=== PATIENT | male | born 2000 | race African-American/Black ===

== ENCOUNTER 2024-09-22 22:15 | Observation (INO) | payer OTHER, SELFPAY ==
[2024-09-22 16:53] VITALS: BP 106/63
[2024-09-22 17:00] VITALS: BP 115/70
--- NOTE | 2024-09-22 17:04 | ED.GENMED ---
History of Present Illness
General
Chief Complaint: Abnormal Lab Value
Source: patient
Exam Limitations: none
Time Seen by Provider: 09/22/24 16:55
History of Present Illness
History of Present Illness:
See MDM
Past History
Past History
ED Past Medical History: Other (Sickle cell)
ED Past Surgical History: Cholecystectomy
Social History
Tobacco: Non-smoker
Alcohol: None
Phy Exam
Physical Exam
Physical Exam:
See MDM
Course
Orders/Labs/Results
Orders:
Orders
09/22/24 17:00
CMP [Comprehensive Metabolic Panel] Urgent
Complete Blood Count/With Diff Urgent
Reticulocyte Count Urgent
Comment: ADD ON
09/22/24 17:02
Add On- LAB Urgent
Tests Added?: reticulocyte count
0.9% Sodium Chloride 1000 ml [Nss] 1,000 ml IV BOLUS
HYDROmorphone [Dilaudid] 1 mg IV NOW STA
09/22/24 17:03
CT Abd/pelvis W Iv Cont Urgent
Comment: sickle cell
Reason For Exam: left upper abd pain
CR Chest - 2 Views Urgent
Comment: sickle cell
Reason For Exam: chest pain
09/22/24 19:15
Morphine Sulfate 4 mg IV NOW STA
09/22/24 20:14
NT-proBNP Urgent
Troponin I Urgent
Abnormal Lab Results
09/22/24
17:00
WBC 12.5 H 10^3/uL
(4.8-10.8)
RBC 2.87 L 10^6/uL
(4.70-6.10)
Hgb 8.9 L g/dL
(13.0-18.0)
Hct 24.1 L %
(39.0-52.0)
RDW 20.7 H %
(11.5-14.5)
Plt Count 430 H 10^3/uL
(130-400)
MPV 10.9 H fL
(7.4-10.4)
Absolute Neuts (auto) 9.7 H 10^3/uL
(1.4-6.5)
Absolute Monos (auto) 1.2 H 10^3/uL
(0.1-0.6)
Neutrophils % 77.8 H %
(42.2-75.2)
Lymphocytes % 11.7 L %
(20.5-51.1)
Monocytes % 9.9 H %
(1.7-9.3)
Retic Count 7.8 H %
(0.4-2.8)
BUN 6 L mg/dl
(9-20)
Glucose 105 H mg/dl
(70-99)
Total Bilirubin 8.2 H mg/dl
(0.2-1.3)
Total Protein 8.5 H g/dl
(6.3-8.2)
Albumin 5.2 H g/dl
(3.5-5.0)
09/22/24 17:00
09/22/24 17:00
Vital Signs
Initial and Last Documented VS:
Initial Vital Signs
Temp Pulse Resp BP Pulse Ox
98.1 F 61 15 106/63 100
09/22/24 16:53 09/22/24 16:53 09/22/24 16:53 09/22/24 16:53 09/22/24 16:53
Last Documented Vital Signs
Temp Pulse Resp BP Pulse Ox
98.1 F 61 15 124/77 98
09/22/24 16:53 09/22/24 16:53 09/22/24 16:53 09/22/24 20:15 09/22/24 21:21
MDM/Problems Addressed
Differential Diagnosis Includes:
Note:
CHIEF COMPLAINT(S)
Sickle cell crisis with pain.
HISTORY OF PRESENT ILLNESS
The patient is a 35-year-old male with a history of sickle cell disease presenting with a sickle cell crisis characterized by pain that began yesterday. The patient presents from [facility]. The patient described the pain as
located on the left side and indicated no previous admissions for overnight stays due to such crises. No chest pain was mentioned during this episode. The patient confirmed adherence to hydroxyurea for managing sickle cell disease. Upon examination,
tenderness was reported upon palpation of the abdomen, specifically on the left side. The patient did not report any associated cough or wheezing.
ADDITIONAL HISTORY OBTAINED FROM SOURCES OTHER THAN THE PATIENT
The patients mother was present and confirmed the absence of known allergies.
MEDICATIONS
The patient is currently taking hydroxyurea for sickle cell management.
PHYSICAL EXAM
General: Alert, no acute distress.
Skin: Warm, dry.
Head: Normocephalic, atraumatic
Neck: Appears supple, trachea midline.
Eyes, Ears, Nose, Mouth, and Throat: Oral mucosa moist.
Cardiovascular: No signs of cyanosis
Respiratory: Respirations are non-labored.. Lungs clear
Abdomen: Non-distended. Mild left upper quadrant tenderness without rebound
Musculoskeletal: No deformities
Neurological: No focal neurological deficit observed.
Psychiatric: Cooperative, appropriate mood and affect.
PLAN
1. Administer intravenous fluids.
2. Administer pain management with dilaudid.
3. Order a chest X-ray to evaluate for acute chest syndrome.
4. Perform a CT scan of the abdomen to assess for other potential causes of abdominal pain.
DIFFERENTIAL DIAGNOSIS
The Differential Diagnosis includes, in no particular order and is not limited to:
1. Acute chest syndrome
2. Sickle cell crisis
3. Splenic sequestration
4. Gallstones or cholecystitis
5. Pancreatitis
6. Acute appendicitis
7. Kidney stones
8. Hepatic crisis
9. Rib infarction
10. Constipation
CARE-UPDATE
09/22/24 - 19:15
The patient continues to experience left upper quadrant pain despite appearing more comfortable. The chest x-ray shows enlarged cardiac silhouette and concern for increased vascular congestion. The patient reported dizziness following administration
of dilaudid, so will give dose of morphine
Disposition:
SUMMARY OF ENCOUNTER
The patient, a 35-year-old male with known sickle cell disease, presented to the emergency department with a sickle cell crisis characterized by pain predominantly on the left side, beginning the previous day. Despite hydroxyurea adherence, the pain
persisted. Examination revealed left abdominal tenderness. Intravenous fluids were administered, and pain management was initiated with hydromorphone. A chest X-ray was ordered to evaluate for acute chest syndrome, revealing an enlarged cardiac
silhouette and increased vascular congestion.
DISPOSITION
Admit
ASSESSMENT
Given the patients history and current symptoms, the assessment includes possible acute chest syndrome related to sickle cell crisis, along with cardiomegaly indicated by radiological findings.
EMERGENCY TREATMENTS ADMINISTERED
Hydromorphone (generic for Dilaudid) for pain management, and intravenous fluids were administered.
MANAGEMENT OF THE PATIENTS CARE WAS DISCUSSED WITH
Discussion with hospitalists regarding the patients management and admission for further evaluation and treatment.
PLAN
The plan includes admission for further management of the sickle cell crisis and evaluation of potential acute chest syndrome in collaboration with the hospitalist team.
INDEPENDENT REVIEW OF LABS AND INTERPRETATION OF TESTS
- My independent interpretation of the chest x-ray shows an enlarged cardiac silhouette and increased vascular congestion.
MEDICAL DECISION MAKING
- Number and Complexity of Problems Addressed: Chronic conditions affecting care [sickle cell disease]. Differential Diagnosis includes: acute chest syndrome, splenic sequestration, gallstones or cholecystitis, pancreatitis, acute appendicitis,
kidney stones, hepatic crisis, rib infarction, and constipation.
- Data:
Category 1
- My independent interpretation of chest x-ray shows an enlarged cardiac silhouette and vascular congestion.
Category 2
- Input from independent historian: The patient�s mother confirmed the absence of allergies.
- Risk:
Consideration of intravenous pain management and admission due to the complexity of sickle cell crisis and chest x-ray findings suggestive of cardiomegaly and increased vascular congestion.
DIAGNOSIS
- Sickle cell crisis (ICD-10: D57.00)
- Acute chest syndrome suspected (ICD-10: D57.01)
*Pulse Oximetry
SaO2: 100
Oxygen Mode of Delivery: Room air
Patient hypoxic: no
*Critical Care Note
Total Time (30-74mins, 75-104mins- exclusive of procedures): Not Applicable
ED Attending Note
-
Portions of this chart may have been created with voice recognition software.� Occasional wrong word or��sound alike� substitutions may have occurred due to the inherent limitations of voice recognition software.
Discharge Plan
Departure
Patient Disposition: Admit
Date of Disposition: 09/22/24
Time of Disposition: 21:24
Admit to: Med/Surg
Presentation/result/management discussed w/ accepting MD/DO: Hospitalist
Discharge Problem:
Sickle cell crisis
Referrals:
[facility] [Family Provider, General]
Interventions
Interventions:
*General Assessment Last Done: 09/22/24 17:12
*Neglect/Abuse Screening Last Done: 09/22/24 17:12
*ED- Fall Risk Assessment Last Done: 09/22/24 17:12
*ED COVID-19 Vaccine History Last Done: 09/22/24 17:12
Discharge Date and Time
Print Language: ANGUILLAN
[2024-09-22] MEDS: NSS 1000 IV (17:08)
[2024-09-22] MEDS: DILAUDID 1 MG IV (17:09)
[2024-09-22 17:16] VITALS: BMI 21.1
[2024-09-22 17:27] LABS: ALT (SGPT) 16 U/L (0-50); AST (SGOT) 37 U/L (17-59); Albumin 5.2 g/dl (3.5-5.0); Alkaline Phosphatase 68 U/L (38-126); Blood Urea Nitrogen 6 mg/dl (9-20); Calcium 9.9 mg/dl (8.4-10.2); Carbon Dioxide 25 mmol/L (22-30); Chloride 106 mmol/L (98-107); Estimated Creatinine Clearance > 125 ml/min; Glucose 105 mg/dl (70-99); Hematocrit 24.1 % (39.0-52.0); Hemoglobin 8.9 g/dL (13.0-18.0); Mean Corp Hgb Conc. 36.9 g/dL (33.0-37.0); Mean Corpuscular Volume 84.0 fL (80.0-94.0); Platelet Count 430 10^3/uL (130-400); Potassium 4.2 mmol/L (3.5-5.1); Red Cell Dist. Width 20.7 % (11.5-14.5); Sodium 140 mmol/L (135-145); Total Protein 8.5 g/dl (6.3-8.2); eGFR > 60.00
[2024-09-22 17:59] LABS: Nucleated Red Blood Cells % 0.2 % (-)
[2024-09-22 18:01] LABS: Reticulocyte Count 7.8 % (0.4-2.8)
[2024-09-22 18:04] VITALS: BP 110/61
[2024-09-22 19:00] VITALS: BP 115/62
[2024-09-22] MEDS: MORPHINE SULFATE 4 MG IV (19:21)
[2024-09-22 20:15] VITALS: BP 124/77
[2024-09-22 20:26] LABS: Normal RBC Morphology No
[2024-09-22 20:28] LABS: Anisocytosis 1+; Hypochromasia 2+; Macrocytosis 1+
[2024-09-22 20:29] LABS: Ovalocytes 1+; Sickled Red Blood Cells 3+; Target Cells 1+
[2024-09-22 20:47] LABS: Troponin I 0.020 ng/ml
[2024-09-22 21:23] VITALS: BP 113/79
--- NOTE | 2024-09-22 21:35 | HPS.HSE ---
Family Physician
-
Family Physician: [facility]
Chief Complaint
-
Pain crisis
History of Present Illness
This is a 24-year-old with past medical history significant for sickle cell anemia, history of her chest pain crisis with last episode being June of this year complicated by pneumonia and status post cholecystectomy who presents to the emergency
department with 1 day history of chest and abdominal pain.
Patient reported that symptoms started yesterday when he initially noticed yellow discoloration of his eyes. Then he started having chest and abdominal pain. At that time he did check himself into the correctional facility to avoid being if EGD.
He denies any IV drug use. He denies having any fevers or chills. He denies nausea or vomiting. He denies feeling short of breath at the moment. His hemoglobin is usually around 9. Patient states that he takes and corroborated with mother folic
acid Percocet Tylenol 3 and has been prescribed hydroxyurea but he does not take this due to side effects.
In the emergency department the patient was afebrile, oxygen saturation was 99% on room air. Blood pressure was 115/60 with a pulse of 61. Chest x-ray shows slightly enlarged cardiac silhouette but no acute infiltrates noted.
He has a white count of 12.5, hemoglobin was 8.9 with a platelet count of 430. Reticulocyte count was 7.8. Total bilirubin was 8.2. Electrolytes BUN/creatinine were normal. CT of the abdomen and pelvis shows atrophic partially calcified spleen
thought secondary to splenic infarct from sickle cell disease.
Medical History
Past Medical History
Past Medical History: Reports Other (Sickle cell disease)
Past Surgical History: Reports Cholecystectomy
Social History
Tobacco: Non-smoker
Alcohol: None
Drug: None
Personal: Single
Living: Jail
Family History
Family History: Not pertinent
Allergies / Home Medications
Allergies reflects when Allergies were last updated in [employer].
Home Medications with original date entered in [employer]
Allergy/Medication List:
Allergies
Allergy/AdvReac Type Severity Reaction Status Date / Time
No Known Allergies Allergy Verified 09/22/24 17:00
Folic acid 1 mg tablets, 1 mg p.o. daily
Review of Systems
-
History Source: Patient
Constitutional: Reports No Symptoms
EENT: Reports No Symptoms
Respiratory: Reports No Symptoms
Cardiac: Reports Chest Pain
Abdomen/GI: Reports Abdominal Pain
: Reports No Symptoms
Musculoskeletal: Reports No Symptoms
Skin: Reports No Symptoms
Neurological: Reports No Symptoms
Endocrine: Reports No Symptoms
Hematologic/Lymphatic: Reports No Symptoms
Psych: Reports No Symptoms
Physical Exam
Vital Signs
Vital Signs
Temp Pulse Resp BP Pulse Ox
98.1 F 61 15 124/77 98
09/22/24 16:53 09/22/24 16:53 09/22/24 16:53 09/22/24 20:15 09/22/24 21:21
Physical Exam
General: Well Developed, Comfortable, Conversant and Pain
HEENT: NormoCephalic, Moist mucous membranes, Atraumatic and PERRLA; No Oxygen
Respiratory: Clear and Non Labored Respirations; No Wheezes, Rales, Rhonchi or Crackles
Cardiac: S1/S2 and Regular Rhythm
Breast: Deferred by me
GI: Soft, Non Tender, Non Distended and Normal Bowel Sounds
Rectal: Deferred by Provider
Genito-urinary: Deferred by me
Musculoskeletal: No Clubbing, No Cyanosis and No Edema
Skin: Warm
Neuro: AO x 3 and Nonfocal/grossly intact
Hematologic/Lymphatic: No Lymphadenopathy
Psych: Calm
Laboratory Results
-
09/22/24 17:00
09/22/24 17:00
Laboratory Results
Total Bilirubin 8.2 mg/dl (0.2-1.3) H 09/22/24 17:00
AST 37 U/L (17-59) 09/22/24 17:00
ALT 16 U/L (0-50) 09/22/24 17:00
Alkaline Phosphatase 68 U/L (38-126) 09/22/24 17:00
Troponin I 0.020 ng/ml 09/22/24 20:14
Data Reviewed
-
Diagnostic Radiology: Image Personally Visualized and interpreted and Report Reviewed by me
CT Scan: Report Reviewed by me
Lab Data: Labs Reviewed by me
Old Records: Reviewed
Impression/Plan
-
IMPRESSION:
24-year-old with history of sickle cell disease recurrent episode of sickle cell crisis who presents to the emergency department with chest pain abdominal pain, icteric sclera, elevated T bilirubin consistent with acute pain syndrome. His chest
x-ray is clear. He is not hypoxic. Lungs are clear to auscultation. Do not believe that this is an acute chest syndrome. Troponin is negative. BNP is normal. He is hemoglobin is 8.9, parents report that his baseline hemoglobin is around
9.5-10. Reticulocyte count is 7.8. T bilirubin 8
PLAN:
Sickle cell pain crisis -moderate severity without acute chest syndrome or pneumonia
- admit to med/surg observation
- IV fluids continued at 125 ml/hr ns
- pain control with RTC tylenol and prn oxycodone and dilaudid
- antiemetics
- trend H/H and bilis for now
- monitor oxygenation continously
- hematology consultation
- patient not taking prescribed hydroxyurea due to side effect of nausea
DVT PPX - lovenox sq
Code status - Full code
[2024-09-23] MEDS: TYLENOL 650 MG PO ×4 (00:53→20:01)
[2024-09-23] MEDS: NSS 1000 IV ×2 (00:55→08:38)
[2024-09-23 01:09] VITALS: BP 113/64
[2024-09-23] MEDS: TYLENOL PO ×2 (04:07→13:04)
[2024-09-23 06:17] VITALS: BP 109/59
[2024-09-23 06:24] LABS: Hematocrit 21.5 % (39.0-52.0); Hemoglobin 7.7 g/dL (13.0-18.0); Mean Corp Hgb Conc. 35.8 g/dL (33.0-37.0); Mean Corpuscular Volume 84.0 fL (80.0-94.0); Platelet Count 349 10^3/uL (130-400); Red Cell Dist. Width 20.7 % (11.5-14.5)
[2024-09-23 06:32] LABS: Blood Urea Nitrogen 6 mg/dl (9-20); Calcium 9.1 mg/dl (8.4-10.2); Carbon Dioxide 25 mmol/L (22-30); Chloride 109 mmol/L (98-107); Estimated Creatinine Clearance > 125 ml/min; Glucose 96 mg/dl (70-99); Potassium 4.5 mmol/L (3.5-5.1); Sodium 139 mmol/L (135-145); eGFR > 60.00
[2024-09-23] MEDS: FOLVITE 1 MG PO (08:13)
[2024-09-23] MEDS: DILAUDID 0.5 MG IV (08:20)
[2024-09-23 08:25] VITALS: BP 126/72
--- NOTE | 2024-09-23 10:22 | CON.ONC ---
Consultation
-
Date Consultation Requested: 09/23/24
Date Consultation Performed: 09/23/24
Requesting Provider: Hoa Posada
Performing Provider: Dr. Angelica Gudino
Reason for Consultation: Sickle cell pain crisis
Impression
Impression
24-year-old male with past medical history of sickle cell disease presenting with sickle cell crisis without acute chest syndrome or pneumonia as he is satting well on room air, and no signs of infection on chest x-ray. His pain is currently not
well controlled and will need increase in pain meds to break the crisis.
Plan
Plan
Sickle cell crisis
--Pain currently not well-controlled. Increase Dilaudid 0.5 every 4 to every 2. Continue p.o. Oxy 10 mg every 4 as needed
--Cont scheduled tylenol
--PRN zofran for nausea
--Chest x-ray revealed some signs of congestion. DC IV fluids
-- Continue folic acid
-- Encourage inspirometry use
-- Check iron panel
-- Monitor H&H and vitals
Leukocytosis
-- 12.5 on admission now 10.5
-- Likely reactive
-- Check UA
-- no signs of pneumonia on chest x-ray, no signs of infection on abdominal CT afebrile
Full code
DVT Lovenox
Spoke to mom over the phone and gave her an update that her son is doing well however he does need continued pain medications. She provided additional information regarding his hospitalization in June at [facility] and home medication list as
mentioned in HPI.
Patient History
History of Present Illness
24-year-old male with past medical history of sickle cell anemia presents to the hospital with chest and abdominal pain. His last sickle cell episode was in June 2024 complicated with pneumonia at [facility]. He has been experiencing his chest and
abdominal pain for the past day. He initially noticed some yellow discoloration in his eyes. When he started to have abdominal and chest pain this when he decided to check him into a correctional facility (unclear why). The correctional facility
later brought him to the hospital. He endorses some nausea, blurry vision and upper extremity pain especially around wrists and fingers. He denies any fevers, chills or vomiting. He denies any shortness of breath or burning with urination. He
states his hemoglobin is usually around 9 and he takes folic acid.
Per discussion with his mom, patient also takes Percocet 10/325 every 4-6 hours however patient states he does not take it that regularly. He has tried hydroxyurea in the past however does not take it due to side effects that include itchiness,
nausea and vomiting. She is electronic transaction implementer is Dr. Annette Castrejon. He has no known history of splenic infarct and he is not aware if he has had immunizations for Meningococcal, pneumonia, haemophilus influenza.
In the ED, he was afebrile, satting well on room air, vital signs stable. WBC 12.5, hg 8.9, platelet count 430, reticulocyte count 7.8, total bilirubin 8.2. CT revealed atrophic partially calcified spleen thought to be secondary to infarct from
sickle cell disease.
Past-Medical/Surgical History
Past medical history: Sickle cell disease
Past surgical history: Cholecystectomy 2023
Patient Medication
�Medication �Instructions �Recorded �Confirmed �Last Taken �Type
No Meds [No Current Medications] 09/23/24 09/23/24 Unknown History
Active Medications
Generic Name Dose Route Start Last Admin
Trade Name Freq PRN Reason Stop Dose Admin
Acetaminophen 650 mg 09/23/24 00:21 09/23/24 08:12
Acetaminophen 325 Mg Tablet PO 10/21/24 00:20 650 mg
Q4HWA SOFIA Administration
Albuterol/Ipratropium 3 ml 09/23/24 00:21
Ipratropium 0.5/Albuterol 3 Mg (3 Ml Ampul) INH
R Q4HPRN PRN
shortness of breath
Protocol
Bisacodyl 10 mg 09/23/24 00:21
Bisacodyl 10 Mg Rectal Suppository RECTAL 10/21/24 00:20
[id number] PRN
constipation
Enoxaparin Sodium 40 mg 09/23/24 18:00
Enoxaparin Sodium 40 Mg/0.4 Ml Syringe SC 10/21/24 17:59
QPM SOFIA
Folic Acid 1 mg 09/23/24 08:00 09/23/24 08:13
Folic Acid 1 Mg Tablet PO 10/21/24 07:59 1 mg
DAILY SOFIA Administration
Hydromorphone HCl 0.5 mg 09/23/24 00:21 09/23/24 08:20
Hydromorphone 0.5 Mg/0.5 Ml Syringe IV 10/07/24 00:20 0.5 mg
Q4HPRN PRN Administration
severe pain
Sodium Chloride 1,000 mls @ 125 mls/hr 09/23/24 00:21 09/23/24 08:38
Nss IV 1,000 mls
.Q8H SOFIA Administration
Ondansetron HCl 4 mg 09/23/24 00:21
Ondansetron 4 Mg/2 Ml Vial IV 10/21/24 00:20
Q6HPRN PRN
nausea and vomiting
Oxycodone HCl 10 mg 09/23/24 00:21
Oxycodone 5 Mg Regular Release Tablet PO 10/07/24 00:20
Q4HPRN PRN
moderate pain
Polyethylene Glycol 17 grams 09/23/24 00:21
Polyethylene Glycol Powder 17 Grams Packet PO 10/21/24 00:20
DAILYPRN PRN
constipation
Senna/Docusate Sodium 1 tablet 09/23/24 00:21
Docusate W/Senna (Niurka-Colace) Tablet PO 10/21/24 00:20
BIDPRN PRN
constipation
Sodium Chloride 0 flush 09/23/24 01:00
Sodium Chloride 0.9% (Flush) Syringe IV 10/21/24 00:59
PER PROTOCOL SOFIA
Review of Systems
-
History Source: Patient
Constitutional: Reports No Appetite
EENT: Reports Blurry Vision
Respiratory: Reports No Symptoms
Cardiac: Reports Chest Pain
GI: Reports Abdominal Pain and Nausea
: Reports No Symptoms
Skin: Reports No Symptoms
Neuro: Reports No Symptoms
Physical Exam
-
General: Well Developed
Cardiology: Normal Sinus Rhythm, S1 and S2
Pulmonary: Clear
GI: Soft, Normal Bowel Sounds and Other (Tenderness with palpation left upper quadrant)
Musculoskeletal: No Cyanosis and No Edema
Skin: Warm and Dry
Psych: Calm
Labs
Lab Results
WBC 10.5 10^3/uL (4.8-10.8) 09/23/24 06:09
RBC 2.56 10^6/uL (4.70-6.10) L 09/23/24 06:09
Hgb 7.7 g/dL (13.0-18.0) L 09/23/24 06:09
Hct 21.5 % (39.0-52.0) L 09/23/24 06:09
MCV 84.0 fL (80.0-94.0) 09/23/24 06:09
MCH 30.1 pg (27.0-31.0) 09/23/24 06:09
MCHC 35.8 g/dL (33.0-37.0) 09/23/24 06:09
RDW 20.7 % (11.5-14.5) H 09/23/24 06:09
Plt Count 349 10^3/uL (130-400) 09/23/24 06:09
MPV 10.4 fL (7.4-10.4) 09/23/24 06:09
Abs Immat Gran (auto) 0.0 10^3/uL (0-0.05) 09/22/24 17:00
Absolute Neuts (auto) 9.7 10^3/uL (1.4-6.5) H 09/22/24 17:00
Absolute Lymphs (auto) 1.5 10^3/uL (1.2-3.4) 09/22/24 17:00
Absolute Monos (auto) 1.2 10^3/uL (0.1-0.6) H 09/22/24 17:00
Absolute Eos (auto) 0.0 10^3/uL (0-0.7) 09/22/24 17:00
Absolute Basos (auto) 0.0 10^3/uL (0-0.2) 09/22/24 17:00
Immature Gran % 0.2 % (0-0.5) 09/22/24 17:00
Neutrophils % 77.8 % (42.2-75.2) H 09/22/24 17:00
Lymphocytes % 11.7 % (20.5-51.1) L 09/22/24 17:00
Monocytes % 9.9 % (1.7-9.3) H 09/22/24 17:00
Eosinophils % 0.2 % (0-6) 09/22/24 17:00
Basophils % 0.2 % (0-2) 09/22/24 17:00
Creatinine 0.6 mg/dL (0.7-1.3) L 09/23/24 06:09
Vital Signs
Vital Signs
Temp Pulse Resp BP Pulse Ox
98.2 F 62 18 126/72 98
09/23/24 08:25 09/23/24 08:25 09/23/24 08:25 09/23/24 08:25 09/23/24 08:25
--- NOTE | 2024-09-23 11:57 | W.PN.HOSP.TC ---
Today's Communication/Plan
-
Maintenance IV fluids and supportive O2
Trend hemolytic markers
As needed analgesics
Oncology consult for maintenance therapy considerations
Assessment / Plan
Assessment / Plan
#Sickle cell pain crisis
#Sickle cell anemia
-Recurrence likely related to intolerance to hydroxyurea, not on maintenance med
-Presented with acute pain, signs of hemolysis on labs, elevated reticulocyte
-Moderate severity, no signs of sickle cell complications such as ACS
-No signs of superimposed infections at this time
-Currently on maintenance IVF and supportive O2
-Continue as needed analgesics, maintenance fluids, supportive O2
-Trend CBC, LFTs, reticulocyte count; follow-up UA
-No indications for blood transfusions as of now
-Oncology consulted, recommendations on maintenance therapy appreciated
Diet: Regular
DVT prophylaxis: SQ Lovenox
CODE STATUS: Full code
Disposition: Discharge back to correctional facility when stable
Anticipated Discharge: 24 - 48 hours
Subjective/Interval History
-
Date of Service: September 23, 2024
Seen and examined at the bedside. No acute events reported overnight. AFVSS this morning on room air
Patient states his pain is slightly better, down 2-3 points (out of 10 total).
Denies any new complaints. Denies shortness of breath, fevers or chills
Objective Data
-
Labs:
Laboratory Results
09/23/24
06:09
WBC 10.5
Hgb 7.7 L
Hct 21.5 L
Plt Count 349
Sodium 139
Potassium 4.5
Chloride 109 H
Carbon Dioxide 25
BUN 6 L
Creatinine 0.6 L
Glucose 96
Calcium 9.1
Vital Signs:
Vital Signs
Temp Pulse Resp BP Pulse Ox
98.2 F 62 18 126/72 98
09/23/24 08:25 09/23/24 08:25 09/23/24 08:25 09/23/24 08:25 09/23/24 08:25
Review of Systems
-
History Source: Patient
All other systems: Reviewed and negative
Physical Exam
-
General: Well Developed, Well Nourished and No Apparent Distress
HEENT: Normocephalic, Atraumatic and Moist Mucous Membranes
Respiratory: Clear to Auscultation and Non Labored Respirations; Negative Accessory Resp Muscle Use
Cardiac: Regular Rhythm and S1/S2; Negative Murmur, Rub or Gallop
GI: Soft, Nontender, Nondistended and Normal Bowel Sounds
Musculoskeletal: No Clubbing, No Cyanosis and No Edema
Skin: Warm and Dry; Negative Rash
Neuro: AO x 3, Nonfocal/Grossly Intact and Central Nerve's Intact; Negative Tremors
Psych: Calm
Data Reviewed
-
Labs: Labs Reviewed by me and Discussed with Patient
[2024-09-23] MEDS: ROXICODONE 10 MG PO (13:45)
[2024-09-23 13:48] VITALS: BP 113/60
[2024-09-23 15:13] LABS: Iron 121 ug/dl (49-181)
[2024-09-23 15:26] LABS: Total Iron Binding Capacity 292 ug/dl (261-462)
[2024-09-23 16:08] LABS: Ferritin 44.8 ng/ml (17.9-464.0)
[2024-09-23 16:39] LABS: Folate 5.8 ng/ml (2.76-20); Vitamin B12 307 pg/ml (239-931)
[2024-09-23] MEDS: LOVENOX 40 MG SC (17:10)
[2024-09-23 23:00] VITALS: BP 103/61
[2024-09-24] MEDS: TYLENOL PO ×4 (01:00→17:12)
[2024-09-24 06:59] LABS: Hematocrit 22.5 % (39.0-52.0); Hemoglobin 8.2 g/dL (13.0-18.0); Mean Corp Hgb Conc. 36.4 g/dL (33.0-37.0); Mean Corpuscular Volume 84.3 fL (80.0-94.0); Platelet Count 354 10^3/uL (130-400); Red Cell Dist. Width 21.5 % (11.5-14.5)
[2024-09-24 07:26] LABS: ALT (SGPT) 15 U/L (0-50); AST (SGOT) 31 U/L (17-59); Albumin 4.6 g/dl (3.5-5.0); Alkaline Phosphatase 54 U/L (38-126); Blood Urea Nitrogen 6 mg/dl (9-20); Calcium 9.5 mg/dl (8.4-10.2); Carbon Dioxide 25 mmol/L (22-30); Chloride 106 mmol/L (98-107); Estimated Creatinine Clearance > 125 ml/min; Glucose 84 mg/dl (70-99); Potassium 4.3 mmol/L (3.5-5.1); Sodium 138 mmol/L (135-145); Total Protein 6.8 g/dl (6.3-8.2); eGFR > 60.00
[2024-09-24 08:01] LABS: Nucleated Red Blood Cells % 0.3 % (-); Reticulocyte Count 9.7 % (0.4-2.8)
--- NOTE | 2024-09-24 08:28 | W.PN.ONC ---
Today's Communication / Plan
-
Continue pain control
Start B12 supplement
Start iron supplement
Impression
Impression
24-year-old male with past medical history of sickle cell disease presenting with LUQ pain, chest pain and scleral icterus. He is without acute chest syndrome or pneumonia as he is satting well on room air, and no signs of infection on chest x-ray.
CT imaging revealed findings consistent with splenic infarctions. His chest pain has almost resolved but LUQ pain still present. He rates is a 5/10 in severity. Recommend to start B12 and iron supplement.
Plan
Plan
Sickle cell crisis - LUQ pain secondary to splenic infarcts
--Pain 5/10 in severity - only the 10mg PO oxy since yesterday
--PRN zofran for nausea
--Tolerating PO fluids so no IV fluid requirements at this time
-- Continue folic acid
-- Encourage inspirometry use
-- Iron stores low normal - recommend iron supplement
-- B12 307 goal >400. Start B12 supplement
-- Cont pain control
Leukocytosis
-- 12.5 on admission now wnl
-- Likely reactive
-- UA pending
-- no signs of pneumonia on chest x-ray, no signs of infection on abdominal CT afebrile
Full code
DVT Lovenox
Spoke to mom over the phone and gave her an update that her son is doing well however he does need continued pain medications. She is wondering when he will get discharged and wondering about his incarceration status. I stated I can only speak for
the medical side of things, but will keep her updated on her sons health.
Subjective/Objective
Subjective/Objective
Chest pain improved, but still 5/10 LUQ pain. Wants to leave today ideally.
Vital Signs:
Vital Signs
Temp Pulse Resp BP Pulse Ox
98.5 F 61 16 103/61 97
09/23/24 23:00 09/23/24 23:00 09/23/24 23:00 09/23/24 23:00 09/23/24 23:00
Lab Results:
Laboratory Data
WBC 10.7 10^3/uL (4.8-10.8) 09/24/24 06:28
Hgb 8.2 g/dL (13.0-18.0) L 09/24/24 06:28
Plt Count 354 10^3/uL (130-400) 09/24/24 06:28
eGFR > 60.00 09/24/24 06:28
Orders
Orders
Orders From Last 24 Hours
09/23/24 11:40
HYDROmorphone [Dilaudid] 0.5 mg IV Q2HPRN PRN
09/23/24 11:54
Urine Reflex Culture from UA [Urinalysis Reflex To Culture] Routine
09/23/24 12:24
Add On- LAB Routine
[2024-09-24 08:37] VITALS: BP 119/58
[2024-09-24] MEDS: FOLVITE 1 MG PO (08:46)
[2024-09-24] MEDS: TYLENOL 650 MG PO (08:46)
[2024-09-24] MEDS: FEOSOL 325 MG PO (08:47)
[2024-09-24] MEDS: ROXICODONE 10 MG PO (11:17)
--- NOTE | 2024-09-24 11:45 | W.PN.HOSP.TC ---
Today's Communication/Plan
-
B12/folate/iron
Supportive O2
Oral hydration
Trend hemolytic markers
Titrate analgesics
Assessment / Plan
Assessment / Plan
#Sickle cell pain crisis
-Recurrence likely related to intolerance to hydroxyurea, not on maintenance med
-Presented with acute pain, signs of hemolysis on labs, elevated reticulocytes and bilirubin
-Moderate severity, no signs of sickle cell complications such as ACS; does have splenic infarct
-No signs of superimposed infections at this time; IVF DC'd with early signs of congestion on CXR
-Continue with supportive supplemental oxygen via nasal cannula
-Continue with as needed Dilaudid and oxycodone, wean as able
-Trend CBC, LFTs, reticulocyte count; follow-up UA
-No indications for blood transfusions as of now
-Oncology following
#Splenic infarct
-Secondary to sickle cell disease and autoinfarction
-No indication for cardioembolic or hypercoagulable workup
-Continue with as needed analgesics as above
#Multifactorial anemia
#Sickle cell anemia
#Iron deficiency and B12 deficiency
-Iron studies today with ferritin in the 40s, B12 borderline; started on iron supplement and B12 supplement
-Hemoglobin generally stable here, no indications for transfusion as of now, no signs of bleeding
-Continue with iron, B12, folate supplement and trend CBC
Diet: Regular
DVT prophylaxis: SQ Lovenox
CODE STATUS: Full code
Disposition: Discharge back to correctional facility when stable
Anticipated Discharge: 24 - 48 hours
Subjective/Interval History
-
Date of Service: September 24, 2024
Seen and examined at the bedside. No acute events reported overnight. AFVSS this morning
Continues to have discomfort most notable in the left chest wall, LUQ abdomen. Denies dyspnea, fevers or chills, squeezing chest tightness
Reticulocytes and bilirubin uptrending. IV fluids stopped yesterday as CXR showed some signs of early pulmonary congestion
Objective Data
-
Labs:
Laboratory Results
09/24/24
06:28
WBC 10.7
Hgb 8.2 L
Hct 22.5 L
Plt Count 354
Sodium 138
Potassium 4.3
Chloride 106
Carbon Dioxide 25
BUN 6 L
Creatinine 0.7
Glucose 84
Calcium 9.5
Total Bilirubin 9.5 H
AST 31
ALT 15
Alkaline Phosphatase 54
Vital Signs:
Vital Signs
Temp Pulse Resp BP Pulse Ox
98.5 F 78 16 119/58 98
09/24/24 08:37 09/24/24 08:37 09/24/24 08:37 09/24/24 08:37 09/24/24 08:37
I&O
09/23/24 09/24/24 09/25/24
06:59 06:59 06:59
Intake Total 720 / 720
Balance 720 / 720
Review of Systems
-
History Source: Patient
All other systems: Reviewed and negative
Physical Exam
-
General: Well Developed, Well Nourished and Pain
HEENT: Normocephalic, Atraumatic, Moist Mucous Membranes and Other (Scleral icterus)
Respiratory: Clear to Auscultation and Non Labored Respirations; Negative Wheezes, Rales, Rhonchi or Accessory Resp Muscle Use
Cardiac: Regular Rhythm and S1/S2; Negative Murmur, Rub or Gallop
GI: Soft, Nondistended, Normal Bowel Sounds and Tender (LUQ, no peritoneal signs)
Musculoskeletal: No Clubbing, No Cyanosis and No Edema
Skin: Warm and Dry; Negative Rash
Neuro: AO x 3, Nonfocal/Grossly Intact and Central Nerve's Intact; Negative Tremors
Psych: Calm
Data Reviewed
-
Labs: Labs Reviewed by me and Discussed with Patient
--- NOTE | 2024-09-24 15:00 | PTCARENOTE ---
pt asking for update if Dr. Gudino heard back from [facility] regarding request for him to be furloughed. I asked Dr. Gudino if she heard back and she said, 'no'. patient updated and he became angry and said, 'She needs to keep calling [facility].' 'I
am going to sign out AMA if I don't get discharged or get furloughed.!'. Dr. Benavides updated, will continue to monitor.
--- NOTE | 2024-09-24 15:23 | PTCARENOTE ---
pt medicated with PRN Roxicodone for c/o luq abdominal pain today with some relief. denies sob at rest or with exertion, 2L NC applied per Dr. Keita to keep sao2 >98% per order. tolerating diet, showered, independent to br, but otherwise
shackled to bed, prisoner guards x2 at beside, vss, will continue to monitor.
[2024-09-24 15:59] VITALS: BP 116/65
[2024-09-24] MEDS: LOVENOX SC (17:12)
--- NOTE | 2024-09-24 18:14 | PTCARENOTE ---
pt upset and eager to leave. this nurse responded as charge nurse, requested by peers after pt defecated and voided in the trash can. this nurse enter the room and the pt seemed agitated/upset and requesting to leave. pt mentioned that he no longer
had any pain and that when he is discharged from the hospital he has the potential to post bail and be release from custody. when this nurse addressed the pt about behavior related to using the trash can instead of the toilet, one of the guards
interrupted and stated that he was responsible for the pt using the trash can because he left the room with the rudd. Pt was tearful and stated how embarrassed he was about toileting in the trash can. this nurse educated the guards and pt about using
call killian for bedpan, addressed safety concern with keys with final inspection supervisor, house keeping notified and came to clean room. this nurse notified Dr. Yin and Dr. Porter. both agreed that pt was able to be discharged tonight. this nurse updated the pt
and x2 guards at the bedside, pt's nurse Autumn Willson was also notified and updated on discharge planning.
--- NOTE | 2024-09-24 18:20 | PTCARENOTE ---
patient removed his own IV access
--- NOTE | 2024-09-24 18:40 | W.DCSUMMARY ---
Discharge Summary
Discharge Data
Date of Admission: 09/22/24
Date of Discharge: 09/24/24
Total time spent discharging patient (in min): 34
-
Pending Results: No
Hospital Course
Discharging Physician : Kevin Yin DO
Disposition : Home (discharge to [facility] where he will be bailed out by family)
Principal Discharge diagnosis :
Sickle cell pain crisis
Iron deficiency
Vitamin B12 deficiency
Splenic autoinfarction
Chronic Discharge diagnosis :
Sickle cell anemia
Hospital Course :
24-year-old male with sickle cell anemia not on hydroxyurea due to intolerance (nausea, pruritus) that presented to the hospital with generalized discomfort, worst in left chest wall and LUQ abdomen. Initial CT scan showed signs of splenic
infarctions in the context of his sickle cell disease. Initial labs showed elevated bilirubin and hemolytic markers consistent with sickle cell crisis. Infectious workup unremarkable, no signs of acute chest syndrome here. Did not receive any
blood products while in the hospital. Monitored his CBC and hemoglobin markers which were generally stable. Iron studies were performed and showed mild iron deficiency and B12 deficiency. Was started on ferrous sulfate and cyanocobalamin in
addition to folate supplement. Was treated supportively with IV fluids and supplemental oxygen. Analgesics were given on as-needed basis. Was seen by hematology, recommended OP follow-up with his primary billiard table mechanic for considerations of
maintenance therapy. Clinically improved with resolution of pain. Was discharged back to [facility] on 09/24, where he apparently will be bailed out by family.
Important imaging findings :
CT A/P with IV contrast (09/22/24)
IMPRESSION: There is an atrophic and partially calcified spleen which is likely related to splenic infarctions in the setting of sickle cell disease. Mild hepatomegaly. Osseous sequelae of sickle cell disease. Mild cardiomegaly which is likely
related to sickle cell disease. There is trace bibasilar atelectasis.
Procedure findings : N/A
Follow-up:
-Follow-up with family doctor within 1 week of discharge (referral provided if needed)
-Follow-up with billiard table mechanic within 1 to 2 weeks of discharge (referral provided if needed)
-Discharged on folate 1 mg daily, cyanocobalamin 1000 mcg daily, ferrous sulfate 325 mg daily
-Repeat CMP, CBC with differential, reticulocyte in 5 to 7 days as OP
Discharge Plan
-
Patient Disposition: Home (Routine Discharge)
Discharge Diagnosis/Procedures: Sickle cell anemia
Sickle cell pain crisis
Iron deficiency
Vitamin B12 deficiency
Condition: Fair
Diet: No restrictions
Additional Diets: Goal of 64 ounces water intake daily
Activity: As tolerated
Driving Restrictions: No driving for 24 hours
Bathing Restrictions: None
Blood Work: CMP, CBC, reticulocyte count in 5 to 7 days
Others Tests: None
Activity Restrictions/Additional Instructions:
Follow-up with your family doctor within 1 week of discharge from hospital. Referral provided if any family doctor needed ([facility] family medicine residency clinic)
Follow-up with your primary billiard table mechanic within 1 to 2 weeks of discharge from the hospital, referral provided if new billiard table mechanic needed
Referrals:
[facility] Residency Clinic [Outside]
[facility],Facility [Family Provider, General]
Angelica Gudino MD [Active, Oncology]
Additional Discharge Medication Instructions: Nutritional supplements: Ferrous sulfate 325 mg daily, folic acid 1 mg daily, vitamin B12 1000 mcg daily
Pain medicines: Oxycodone for 10 mg every 6 hours as needed for pain. Contact your family doctor or billiard table mechanic for refill if needed
Prescriptions:
New
ferrous sulfate [FeroSul] 325 mg (65 mg iron) Tablet
325 mg PO DAILY 30 Days Qty: 30 0RF
folic acid 1 mg Tablet
1 mg PO DAILY 30 Days Qty: 30 0RF
oxycodone 5 mg Tablet
10 mg PO Q6HPRN PRN (Reason: moderate pain) 3 Days Qty: 14 0RF
cyanocobalamin (vitamin B-12) [Vitamin B-12] 1,000 mcg Tablet
1,000 mcg PO DAILY 30 Days Qty: 30 0RF
Discharge Orders:
Discharge Patient (As Directed); Ordered 09/24/24
Ordered By: Kevin Yin
Discharge Date and Time
Print Language: NIUEAN
--- NOTE | 2024-09-24 18:51 | W.PN.UPDATE ---
Update Note
Progress Note Update
Patient requesting discharge. Reportedly, patient will be bailed out of [facility] by family when he is discharged. At this time he says he has 0 out of 10 pain and feels well, would like to be discharged if possible. Discussed with hematology team who
states he is stable from their perspective for discharge. Will send with folate, ferrous sulfate, B12 supplement. Provide 3 days course of as needed oxycodone 10 mg for breakthrough pain. Encouraged him to follow-up with his PCP and forging die sinker
after discharge, referrals provided if needed. Labs provided for CMP, CBC with differential, reticulocyte count in 5 to 7 days as OP
== END 2024-09-24 20:45 | disposition home or self-care (01) ==
LOC: 3 WEST ACU 22:15
PROVIDERS: ADMITTING PHYSICIAN Internal Medicine; ATTENDING PHYSICIAN Internal Medicine; EMERGENCY PHYSICIAN Student in an Organized Health Care Education/Training Program; OTHER PHYSICIAN Internal Medicine Hematology & Oncology
DX: D57.00 Hb-SS disease with crisis, unspecified (principal); R79.89 Other specified abnormal findings of blood chemistry; R07.9 Chest pain, unspecified; R10.12 Left upper quadrant pain; R93.1 Abnormal findings on diagnostic imaging of heart and coronary circulation; E61.1 Iron deficiency; I51.7 Cardiomegaly; R09.89 Other specified symptoms and signs involving the circulatory and respiratory systems; J98.11 Atelectasis; D73.0 Hyposplenism; D72.829 Elevated white blood cell count, unspecified; H53.8 Other visual disturbances; E53.8 Deficiency of other specified B group vitamins; R16.0 Hepatomegaly, not elsewhere classified; D73.89 Other diseases of spleen; M79.603 Pain in arm, unspecified; Z90.49 Acquired absence of other specified parts of digestive tract; Z79.64 Long term (current) use of myelosuppressive agent; Z91.148 Patient's other noncompliance with medication regimen for other reason
CPT/HCPCS: 71046; 74177; 80048; 80053; 82607; 82728; 82746; 83540; 83550; 83880; 84484; 85025; 85027; 85045; 87070; G0378; Q9967